=== PATIENT | male | born 1960 | race Caucasian/White ===

== ENCOUNTER → 2023-10-11 | Outpatient (CLI) | payer BC ==
--- NOTE | 2023-10-11 08:47 | MR ---
EXAMINATION TYPE: MR Prostate wo/w con DATE OF EXAM: 10/11/2023 7:55 AM COMPARISON: None. CLINICAL INDICATION:Male, 63 years old with history of R97.20 ELEVATED PSA; Elevated PSA. TECHNIQUE: Multi-planar, multi-sequence imaging of the pelvis is performed prior to and following the uncomplicated administration of bolus intravenous gadolinium. CONTRAST: 8.5 Gadavist Interpretive Criteria: PI-RADS v2.1 SERUM PSA: 09-18-23 = 8.74 -05-26 = 9.39 SURGICAL PATHOLOGY: Biopsy 06/22/2020 which was benign. FINDINGS: Prostatic dimensions: 5.1 x 6.9 x 5.2 cm. Ellipsoid Volume:95.81 (PSA density=0.09 ng/mL/mL) CENTRAL GLAND (Central and Transition Zones/CZ+TZ): Multiple bilateral, heterogenous appearing hypertrophic stromal nodules, without suspicious lesion. M edian lobe hypertrophy with protrusion into the base of the bladder. (PI-RADS 2) PERIPHERAL ZONE (PZ): Bilateral linear, indistinct wedgelike areas of low ADC, and low T2 signal, No evidence of masslike a bnormality, or localized perfusional hypervascularity, to further suggest a focus of clinically signi ficant prostate cancer. (PI-RADS 2) SEMINAL VESICLES (SV): Symmetric and unremarkable. PERIPROSTATIC TISSUES: Unremarkable. LYMPH NODES: No enlarged pelvic lymph node. REMAINING PELVIS: Bladder wall is within normal limits given distention. No abnormal free or organized intrapelvic fluid collection. No pathologic bowel dilation or mural thickening. No hernia visualized OSSEOUS STRUCTURES: No suspicious osseous abnormality. IMPRESSION: 1. No specific features for high-risk prostate cancer. Maximum PI-RADS score: 2. 2. Substantial BPH, estimated gland volume 95.81 mL. 3. No suspicious osseous lesion. No lymphadenopathy. No evidence of prostate adenocarcinoma involving the periprostatic tissues.
== END | disposition home or self-care (01) ==
LOC: RADMRIMAIN 06:51
PROVIDERS: ATTEND Urology
DX: N40.0 Benign prostatic hyperplasia without lower urinary tract symptoms (principal); R97.20 Elevated prostate specific antigen [PSA]
CPT/HCPCS: 72197; A9585

== ENCOUNTER 2023-12-03 10:39 | Emergency (ER) | payer BC, MEDICARE ==
[2023-12-03 10:56] VITALS: RESP 18
--- NOTE | 2023-12-03 12:28 | US ---
EXAMINATION TYPE: US venous doppler duplex LE RT DATE OF EXAM: 12/03/2023 11:50 AM COMPARISON: NONE CLINICAL INDICATION: Male, 63 years old with history of eval dvt/bakers cyst; Right leg swelling, rig ht knee pain SIDE PERFORMED: Right TECHNIQUE: The lower extremity deep venous system is examined utilizing real time linear array sonog jonnathan with graded compression, doppler sonography and color-flow sonography. VESSELS IMAGED: Common Femoral Vein Deep Femoral Vein Greater Saphenous Vein * Femoral Vein Popliteal Vein Small Saphenous Vein * Proximal Calf Veins (* superficial vessels) Right Leg: Appears negative for DVT Right popliteal fossa: 5.5 x 1.3 x 3.0cm cyst IMPRESSION: Grayscale, color doppler, spectral doppler imaging performed of the deep veins of the lo wer extremities. There is normal flow, compressibility, vascular waveforms.
--- NOTE | 2023-12-03 12:47 | ED ---
General Adult HPI - General Chief complaint: Extremity Problem,Nontraumatic Stated complaint: R knee pain Time Seen by Provider: 12/03/23 11:42 Source: patient, RN notes reviewed, old records reviewed Mode of arrival: ambulatory Limitations: no limitations - History of Present Illness Initial comments: Patient is a 63-year-old male presents emergency department complaining of posterior right knee pain and swelling. Please he has a Hager's cyst. Swelling has been ongoing for multiple weeks to months. He is seeing an orthopedic surgeon for it. Plan for knee arthroscopy. MRI has been done of the leg with no obvious finding. However patient is concerned that there may be a DVT. Is requesting ultrasound. States he has not received 1. Denies any new acute changes. Presents for further evaluation at this time he does not on blood thinners. Patient's right leg findings are chronic for the last few weeks to months. Originally atraumatic pain.Denies any shortness of breath or chest pain. No concern for PE. - Related Data Allergies Allergy/AdvReac Type Severity Reaction Status Date / Time Penicillins Allergy Anaphylaxis Verified 12/03/23 10:57 Sulfa (Sulfonamide Allergy Rash/Hives Verified 12/03/23 10:57 Antibiotics) Review of Systems ROS Statement: Those systems with pertinent positive or pertinent negative responses have been documented in the HPI. Review of Systems: CONST: Denies fever EYES: Denies blurry vision ENT: Denies nasal congestion C/V: Denies Chest pain RESP: Denies shortness of breath GI: Denies abdominal pain : Denies dysuria SKIN: Denies rash. MSK: Endorses right knee pain NEURO: Denies headache ROS Other: All systems not noted in ROS Statement are negative. Past Medical History Past Medical History: Hyperlipidemia, Hypertension, Prostate Disorder History of Any Multi-Drug Resistant Organisms: None Reported Additional Past Surgical History / Comment(s): Gaullbladder removed. Past Psychological History: No Psychological Hx Reported Smoking Status: Never smoker Past Alcohol Use History: None Reported Past Drug Use History: None Reported General Exam - General Exam Comments Initial Comments: General: Appears in no acute distress. HEAD: Normal with no signs of head trauma. EYES: EOMI. ENT: Hearing grossly intact. RESPIRATORY: No respiratory distress. C/V: Regular rate and rhythm. ABD: Abdomen is nondistended. EXT: No obvious deformity. Edema on the right lower extremity that is pitting that is chronic. Edema in the posterior aspect of the right leg as well. Suspect Hager's cyst. Neurovascular intact. No obvious signs of trauma. SKIN: No rashes or lesions observed on exposed skin. NEURO: Alert and oriented. Limitations: no limitations Course Vital Signs 12/03/23 12/03/23 10:50 12:54 Temperature 97.6 F 98.8 F Pulse Rate 71 77 Respiratory 18 18 Rate Blood Pressure 172/92 128/78 O2 Sat by Pulse 100 98 Oximetry Medical Decision Making - Medical Decision Making Was pt. sent in by a medical professional or institution (, EREN, WASTE MANAGEMENT ENGINEER, urgent care, hospital, or residential...) When possible be specific @ -No Did you speak to anyone other than the patient for history (EMS, parent, family, police, friend...)? What history was obtained from this source @ -No Did you review nursing and triage notes (agree or disagree)? Why? @ -I reviewed and agree with nursing and triage notes Were old charts reviewed (outside hosp., previous admission, EMS record, old EKG, old radiological studies, urgent care reports/EKG's, residential records)? Report findings @ -No old charts were reviewed Differential Diagnosis (chest pain, altered mental status, abdominal pain women, abdominal pain men, vaginal bleeding, weakness, fever, dyspnea, syncope, headache, dizziness, GI bleed, back pain, seizure, CVA, palpatations, mental health, musculoskeletal)? @ -DVT, Hager's cyst. This list is not all inclusive. EKG interpreted by me (3pts min.). @ -None done X-rays interpreted by me (1pt min.). @ -None done CT interpreted by me (1pt min.). @ -None done U/S interpreted by me (1pt. min.). @ -Ultrasound shows a popliteal cyst but no evidence of DVT. What testing was considered but not performed or refused? (CT, X-rays, U/S, labs)? Why? @ -None What meds were considered but not given or refused? Why? @ -I offered analgesic medications which were declined. Did you discuss the management of the patient with other professionals (professionals i.e. , EREN, WASTE MANAGEMENT ENGINEER, lab, RT, psych nurse, administrator social welfare, senior network administrator, teacher, district fire management officer, case packer)? Give summary @ -No Was smoking cessation discussed for >3mins.? @ -No Was critical care preformed (if so, how long)? @ -No Were there social determinants of health that impacted care today? How? (Homelessness, low income, unemployed, alcoholism, drug addiction, transportation, low edu. Level, literacy, decrease access to med. care, senior care, rehab)? @ -No Was there de-escalation of care discussed even if they declined (Discuss DNR or withdrawal of care, Hospice)? DNR status @ -No What co-morbidities impacted this encounter? (DM, HTN, Smoking, COPD, CAD, Cancer, CVA, ARF, Chemo, Hep., AIDS, mental health diagnosis, sleep apnea, morbid obesity)? @ -None Was patient admitted / discharged? Hospital course, mention meds given and route, prescriptions, significant lab abnormalities, going to OR and other pertinent info. @ -Patient presents emergency department complaining of chronic right leg edema and posterior knee pain. Is requesting DVT ultrasound. No new findings. No new symptoms. I was in agreement this plan. I offered analgesic medications which were declined. Will obtain ultrasound of the right lower extremity. Vital signs within acceptable limits. Ultrasound revealed suspected Hager's cyst but no evidence of DVT. I updated the patient. He will be discharged home at this time with follow-up with orthopedics. He already has an orthopedic surgeon. I instructed the patient to follow up with their PCP in the next 1-3 days. I explained that the patient should return to the emergency department if they experience any worsening symptoms. Strict return precautions were discussed with the patient. The patient expressed understanding of these instructions. I answered all questions that the patient had. The patient was discharged home in good condition with their prescriptions and follow up information. Undiagnosed new problem with uncertain prognosis? @ -No Drug Therapy requiring intensive monitoring for toxicity (Heparin, Nitro, Insulin, Cardizem)? @ -No Were any procedures done? @ -No Diagnosis/symptom? @ -Hager's cyst Acute, or Chronic, or Acute on Chronic? @ -Acute on chronic Uncomplicated (without systemic symptoms) or Complicated (systemic symptoms)? @ -Uncomplicated Side effects of treatment? @ -No Exacerbation, Progression, or Severe Exacerbation? @ -No Poses a threat to life or bodily function? How? (Chest pain, USA, PA, pneumonia, PE, COPD, DKA, ARF, appy, cholecystitis, CVA, Diverticulitis, Homicidal, Suicidal, threat to staff... and all critical care pts) @ -No Disposition Clinical Impression: Hager's cyst of knee Disposition: HOME SELF-CARE Condition: Good Instructions (If sedation given, give patient instructions): Hager Cyst (ED) Is patient prescribed a controlled substance at d/c from ED?: No Referrals: Saqib Coyne MD [Primary Care Provider] - 1-2 days Time of Disposition: 12:47
[2023-12-03 12:56] VITALS: BP 128/78; PULSE 77; TEMP 98.8
== END 2023-12-03 12:56 | disposition home or self-care (01) ==
LOC: EC 10:39
DX: M71.21 Synovial cyst of popliteal space [Baker], right knee (principal); Z88.0 Allergy status to penicillin; Z88.2 Allergy status to sulfonamides
CPT/HCPCS: 99283

== ENCOUNTER → 2024-01-22 | Outpatient (CLI) | payer BC | END | disposition home or self-care (01) | LOC: LABPAT 10:11 | PROVIDERS: ATTEND Urology | DX: Z01.818 Encounter for other preprocedural examination | CPT/HCPCS: 87086 ==

== ENCOUNTER 2024-01-30 10:19 | Day surgery (SDC) | payer BC, MEDICARE ==
--- NOTE | 2024-01-28 09:17 | P.HPIHPCON ---
History of Present Illness H&P Date: 01/28/24 Chief Complaint: BPH, urinary retention This is a 76-year-old male with history of urinary retention secondary to 96 g prostate, has failed multiple trial voids. Discussed with him the option given the size of the prostate over robotic simple prostatectomy versus HoLEP, risk- benefit of each approach were discussed in detail, he agreed to proceed with a robotic simple prostatectomy, aware of the risk which includes but limited to bleeding infection, injury to the ureter. Aware of the risk of injury to nearby organs, urinary incontinence, erectile dysfunction and persistent retention. Risk of anesthesia was also discussed. He understood all the risk and agreed to proceed Consent for Procedure: I have explained the operation/procedure to the patient, including the risks, benefits, side effects, alternative therapies (including not receiving the proposed treatment or service), the likelihood of the patient achieving his/her goals, and potential recuperation problems for the procedure/sedation/analgesia, as well as any blood products, if indicated. I also explained to the patient the risks, benefits and side effects of the alternatives, as well as the risks related to not receiving the proposed procedure, care, treatment, or services. Past Medical History Past Medical History: Hyperlipidemia, Hypertension, Prostate Disorder History of Any Multi-Drug Resistant Organisms: None Reported Additional Past Surgical History / Comment(s): Gaullbladder removed. Past Psychological History: No Psychological Hx Reported Smoking Status: Never smoker Past Alcohol Use History: None Reported Past Drug Use History: None Reported Medications and Allergies Allergies Allergy/AdvReac Type Severity Reaction Status Date / Time Penicillins Allergy Anaphylaxis Verified 12/03/23 10:57 Sulfa (Sulfonamide Allergy Rash/Hives Verified 12/03/23 10:57 Antibiotics) Surgical - Exam - General no distress, no pain - Eyes normal ocular movement, no pale - ENT normal nares, normal mucosa - Respiratory normal expansion, normal respiratory effort - Abdomen Abdomen: soft, non tender - Psychiatric oriented to time, oriented to person, oriented to place Assessment and Plan Assessment: OR for robotic simple prostatectomy
[2024-01-30] MEDS: IV FLUID CONTINUATION 1,000 ML IV ONE ×2 (11:00→11:17)
[2024-01-30] MEDS: LACTATED RINGERS 1,000 ML IV SCH (11:00)
[2024-01-30] MEDS ORDERED: CYCLOBENZAPRINE 10 MG TAB PO PRN (11:01)
[2024-01-30] MEDS ORDERED: HYDROmorphone 1 MG/ML 1 ML SYRINGE IVP PRN (11:02)
[2024-01-30] MEDS: DEXAMETHASONE SOD PHOSPHATE 4 MG/ML 1 ML VIAL IV ONE (11:12)
[2024-01-30] MEDS: ONDANSETRON 4 MG/2 ML VIAL IVP ONE (11:12)
[2024-01-30] MEDS: fentaNYL (PF) 50 MCG/ML 2 ML AMP IVP PRN (11:34)
[2024-01-30] MEDS: MIDAZOLAM 2 MG/2 ML VIAL IV ONE (11:34)
[2024-01-30] MEDS: HEPARIN SODIUM,PORCINE 5,000 UNIT/ML 1 ML VIAL SQ PRN (11:40)
[2024-01-30] MEDS ORDERED: ePHEDrine 50 MG/ML 1 ML VIAL ONE (11:48)
[2024-01-30] MEDS ORDERED: fentaNYL (PF) 50 MCG/ML 2 ML AMP ONE (11:48)
[2024-01-30] MEDS ORDERED: WATER FOR INJECTION, STERILE 10 ML VIAL IV ONE (11:48)
[2024-01-30] MEDS ORDERED: PROPOFOL 10 MG/ML 20 ML VIAL IV ONE (11:48)
[2024-01-30] MEDS ORDERED: ROCURONIUM 10 MG/ML (5 ML VIAL) IV ONE (11:48)
[2024-01-30] MEDS ORDERED: LIDOCAINE 1% INJ 10MG/ML (20 ML MDV) ONE (11:48)
[2024-01-30] MEDS ORDERED: ROPIVACAINE 5 MG/ML 30 ML VIAL ONE (11:48)
[2024-01-30] MEDS ORDERED: SODIUM CHLORIDE 0.9% (PF) 10 ML VIAL ONE (11:48)
[2024-01-30] MEDS ORDERED: GLYCOPYRROLATE 0.2 MG/ML 2 ML VIAL ONE (11:48)
[2024-01-30] MEDS ORDERED: SUCCINYLCHOLINE CHLORIDE 200 MG/10 ML VIAL IV ONE (11:48)
[2024-01-30] MEDS ORDERED: NEOSTIGMINE 1 MG/ML 10 ML VIAL ONE (11:48)
[2024-01-30] MEDS: GENTAMICIN 120 MG in SODIUM CHLORIDE 0.9% 100 ML IVPB PRN (11:52)
[2024-01-30] MEDS: BUPIVACAINE (PF) 0.25% 30 ML VIAL SQ ONE (11:52)
[2024-01-30] MEDS: CLINDAMYCIN 600 MG in DEXTROSE 5% IN WATER 50 ML IVPB PRN (12:17)
--- NOTE | 2024-01-30 14:24 | P.OP ---
Date of Procedure: 01/30/24 Preoperative Diagnosis: BPH, urinary retention Postoperative Diagnosis: Same Procedure(s) Performed: Robotic assisted laparoscopic simple prostatectomy Implants: None Anesthesia: PRO Surgeon: Derek Villaseñor Estimated Blood Loss (ml): 100 Pathology: other (Prostate adenoma) Condition: stable Disposition: PACU Indications for Procedure: This is a 76-year-old male with history of urinary retention secondary to 96 g prostate, has failed multiple trial voids. Discussed with him the option given the size of the prostate over robotic simple prostatectomy versus HoLEP, risk- benefit of each approach were discussed in detail, he agreed to proceed with a robotic simple prostatectomy, aware of the risk which includes but limited to bleeding infection, injury to the ureter. Aware of the risk of injury to nearby organs, urinary incontinence, erectile dysfunction and persistent retention. Risk of anesthesia was also discussed. He understood all the risk and agreed to proceed Operative Findings: Trilobar hyperplasia Description of Procedure: After preoperative antibiotics were started, the patient was taken to the operating room. Anesthesia was induced and the patient was placed in a supine position with adequate padding of the pressure points, shoulders, back, legs and arms. He was then prepped and draped in the standard fashion. A critical pause was performed using two patient identifiers. A 16F marie catheter was placed to gravity drainage. A pneumoperitoneum was obtained using a Veress needle, after pneumoperitoneum was obtained a 8 mm camera port was placed. Under direct vision a 8mm robotic ports was placed lateral to each rectus slightly below the camera port. The left iliac fossa 8mm port was placed. The right assistant family teacher right iliac fossa 12mm port and right paramedian 5mm portwere placed. After the patient was placed in the trendelenberg position, the robot was then docked to the 8mm robotic ports and then each robotic arm and tower was checked in relation to the patient's legs and hands to avoid inadvertent compression. The peritoneal cavity was inspected. Adhesions were taken down along the left lower quadrant An inverted U-shaped incision began laterally to the left medial umbilical ligament and extended high across the midline to the right umbilical ligament. The limbs of the "U" extended to the level of the vasa on both sides. We next developed the preperitoneal space and the space of Retzius. Of note patient did have a open right inguinal canal and a right inguinal hernia that was noticed on mobilization of the bladder the mesh could be visualized but it was medial to the hernia opening Cautery was used to dissected the bladder away from the prostate, the incision was made in close proximity to the prostate, and incision was extended laterally and at this point the plane between the adenoma and the surgical capsule is identified. Both ureteral orifices were identified and neither was injured during the dissection . The adenoma was dissected off of the capsule by combination of blunt dissection and minimum cautery. dissection was initially started along the anterior surface and posterior surface of adenoma, and this was carried laterally. The dissection was carried to the apex, at this point the urethral-prostatic junction was visualized and the prostate was transected at the junction. Prostate adenoma was placed in an endocatch bag . A 9and 6 inch 3-0 V-Lock suture was used to anastomose the urethra and bladder, starting at the 6:00 posterior position. Mucosa was secured in every stitch, to ensure a mucosa to mucosa anastomosis. The stitch was regularly cinched and the anastomosis tightened. . The 20 Fr Marie catheter was advanced, the bladder filled, and the anastomosis was tested. Anastomsis was watertight at 150 mL. balloon was inflated to 10 mL The robot was undocked. specimen was extracted from the supraumbilical incision. The periumbilical fascia was closed with 1-0-PDS suture in figure of 8 fashion. All ports were closed with a subcuticular 4-0 monocryl and Dermabond. Sponge, instrument, and needle counts were correct at the end of the case x2. The patient tolerated the surgery well and without complication. He awoke without difficulty and was taken to the recovery room in stable condition. I did discuss finding of the right inguinal hernia with the patient's .
[2024-01-30] MEDS: HYDROmorphone 0.5 MG/0.5 ML SYRINGE IVP PRN (15:15)
[2024-01-30] MEDS: ONDANSETRON 4 MG/2 ML VIAL IVP PRN (15:15)
[2024-01-30] MEDS: D5-0.45% NACL WITH KCL 20MEQ/L 1,000 ML IV SCH (17:38)
[2024-01-30] MEDS: KETOROLAC 15 MG/ML 1 ML VIAL IVP SCH (17:39)
[2024-01-30] MEDS: BRIMONIDINE TARTRATE 0.2% DROPS 5 ML BTL RIGHT EYE SCH (17:41)
[2024-01-30] MEDS: DORZOLAMIDE-TIMOLOL 2.23%/0.68 10ML BTL RIGHT EYE SCH (17:41)
[2024-01-30] MEDS: ATORVASTATIN 10 MG TAB PO SCH (20:59)
[2024-01-30] MEDS: CIPROFLOXACIN HCL 500 MG TAB PO SCH (20:59)
[2024-01-30] MEDS: BENZOCAINE/MENTHOL LOZENG 1 EACH LOZENGE MUCOUS MEM PRN (21:01)
[2024-01-30] MEDS: ARTIFICIAL TEARS-HYPROMELLOSE DROPS 15 ML BTL LEFT EYE SCH (21:01)
[2024-01-30] MEDS: LATANOPROST 0.005% OPHTH DROPS 2.5 ML BTL RIGHT EYE SCH (21:01)
[2024-01-31] MEDS: HEPARIN SODIUM,PORCINE 5,000 UNIT/ML 1 ML VIAL SQ SCH (00:08)
[2024-01-31] MEDS: NEBIVOLOL 5 MG TAB PO SCH (08:40)
[2024-01-31] MEDS: PSYLLIUM HUSK 100% 6 GM PACKET PO SCH (08:40)
[2024-01-31] MEDS: prednisoLONE ACETATE 1% OPHTH DROPS 5 ML BTL RIGHT EYE SCH (08:41)
[2024-01-31 09:48] VITALS: BP 138/73; PULSE 58; RESP 20; TEMP 97.6
--- NOTE | 2024-01-31 12:37 | P.DS ---
Providers Expected date of discharge: 01/31/24 Attending physician: Derek Villaseñor MD Primary care physician: Saqib Coyne MD Hospital Course: On the day of admission, the patient underwent an uncomplicated robotic assisted laparoscopic simple prostatectomy. The perioperative course was unremarkable. The patient remained afebrile with stable vital signs. On the evening of surgery, he ambulated in his hospital room. On the first postoperative day, he was tolerating clear liquid diet. On examination, the abdomen was soft and nondistended. Incisions were clean, dry, and intact. The Escamilla catheter was draining clear yellow urine. Procedures: Robotic assisted laparoscopic simple prostatectomy on January 30, 2024 Patient Condition at Discharge: Good Plan - Discharge Summary Discharge Rx Participant: No New Discharge Prescriptions: New Ketorolac [Toradol] 10 mg PO Q6HR PRN #12 tab PRN Reason: Pain No Action prednisoLONE ACETATE 1% OPHTH [Pred Forte 1%] 1 drop RIGHT EYE QAM Nebivolol HCl [Bystolic] 10 mg PO QAM Latanoprost [Latanoprost 0.005%] 1 drop RIGHT EYE HS Dorzolamide-Timol 2.23%/0.68% [Cosopt] 1 drop RIGHT EYE TID Atorvastatin [Lipitor] 10 mg PO HS Cyclobenzaprine [Flexeril] 10 mg PO TID PRN PRN Reason: Muscle Spasm Psyllium Husk (with Sugar) [Metamucil Powder] 2 tbsp PO QAM Propylene Glycol [Systane Complete] 1 drop LEFT EYE BID Ciprofloxacin HCl [Cipro] 500 mg PO BID Brimonidine Tartrate [Alphagan P 0.2% Ophth Soln] 1 drops RIGHT EYE TID Acetaminophen 500 mg PO BID PRN PRN Reason: Pain Discharge Medication List Acetaminophen 500 mg PO BID PRN 01/28/24 [History] Atorvastatin [Lipitor] 10 mg PO HS 01/28/24 [History] Brimonidine Tartrate [Alphagan P 0.2% Ophth Soln] 1 drops RIGHT EYE TID 01/28/24 [History] Ciprofloxacin HCl [Cipro] 500 mg PO BID 01/28/24 [History] Cyclobenzaprine [Flexeril] 10 mg PO TID PRN 01/28/24 [History] Dorzolamide-Timol 2.23%/0.68% [Cosopt] 1 drop RIGHT EYE TID 01/28/24 [History] Latanoprost [Latanoprost 0.005%] 1 drop RIGHT EYE HS 01/28/24 [History] Nebivolol HCl [Bystolic] 10 mg PO QAM 01/28/24 [History] Propylene Glycol [Systane Complete] 1 drop LEFT EYE BID 01/28/24 [History] Psyllium Husk (with Sugar) [Metamucil Powder] 2 tbsp PO QAM 01/28/24 [History] prednisoLONE ACETATE 1% OPHTH [Pred Forte 1%] 1 drop RIGHT EYE QAM 01/28/24 [History] Ketorolac [Toradol] 10 mg PO Q6HR PRN #12 tab 01/31/24 [Rx] Follow up Appointment(s)/Referral(s): Derek Villaseñor MD [STAFF PHYSICIAN] - 10 Days Activity/Diet/Wound Care/Special Instructions: Discharge home with Escamilla catheter. Instruct patient to use overnight drainage bag as well as urinary leg bag. Okay to shower. Diet as tolerated. No lifting, driving, or strenuous activity. Reassure patient that abdominal wall ecchymosis and penoscrotal swelling are normal. Discharge Disposition: HOME SELF-CARE
--- NOTE | 2024-02-06 07:49 | P.ANPRN ---
Procedure Note - Anesthesia - Nerve Block Performed Bilateral Erector Spinae Single Time Out Performed: Yes ([id number]) Date of Procedure: 01/30/24 Procedure Start Time: 11:34 Procedure Stop Time: 11:39 Location of Patient: PreOp () Indication: Acute Post-Operative Pain, Requested by Surgeon Specifically requested for management of pain by : Derek Villaseñor Sedation Type: Sedate with meaningful contact maintained Preparation: Sterile Prep Position: Prone Catheter: None Needle Types: Pajunk Needle Gauge: 21 (x2) Ultrasound used to visualize needle placement: Yes Ultrasound used to observe medication spread: Yes Injectate: 0.5% Ropivacaine (see comment for volume) (15cc +10cc nacl pf) Blood Aspirated: No Pain Paresthesia on Injection Noted: No Resistance on Injection: Normal Image Stored and Saved: Yes Events: Uneventful and Well Tolerated
== END 2024-01-31 15:16 | disposition home or self-care (01) ==
LOC: OR 10:19 → 4SSUR 14:28 → OR 01-31 15:16
PROVIDERS: ATTEND Urology
DX: N40.1 Benign prostatic hyperplasia with lower urinary tract symptoms (principal); R33.8 Other retention of urine; G89.18 Other acute postprocedural pain; I10 Essential (primary) hypertension; E78.5 Hyperlipidemia, unspecified; Z88.0 Allergy status to penicillin; Z88.1 Allergy status to other antibiotic agents; Z88.2 Allergy status to sulfonamides; Z79.899 Other long term (current) drug therapy
CPT/HCPCS: 55867; S2900; 64999; 88307

== ENCOUNTER → 2024-09-24 | Outpatient (CLI) | payer BC | END | disposition home or self-care (01) | LOC: LABWHC1 10:16 | PROVIDERS: ATTEND Urology | DX: N40.1 Benign prostatic hyperplasia with lower urinary tract symptoms (principal) | CPT/HCPCS: 36415; 84153 ==